=== PATIENT | male | born 1965 | race Caucasian/White ===

== ENCOUNTER 2016-07-11 06:32 | Inpatient (IN) | payer OTHER ==
[2016-07-11] MEDS ORDERED: morphine CARPU-JECT 2 MG/1 ML DISP.SYRIN IVPUSH ONE (06:48)
[2016-07-11] MEDS ORDERED: ONDANSETRON 4 MG/2 ML VIAL IVPUSH STA (06:48)
[2016-07-11] MEDS ORDERED: morphine CARPU-JECT 4 MG/1 ML DISP.SYRIN ONE (06:50)
[2016-07-11] MEDS ORDERED: ONDANSETRON 4 MG/2 ML VIAL ONE (06:50)
--- NOTE | 2016-07-11 07:02 | PDOC ---
History of Present Illness - General History Source: Patient Exam Limitations: No Limitations - History of Present Illness Initial Comments: 07/11/16 07:03 The patient is a 51-year-old male, with a significant past medical history of hypertension and diabetes, who presents to the emergency department complaining of a severe headache for approximately 2 days. The patient reports he was driving this morning when he began developing a right sided headache. He reports taking ibuprofen 1 day ago for his headache with mild relief. He states his right head pain radiates down his right arm. He denies any numbness, paresthesias, weakness, chest pain, shortness of breath, palpitations, or diaphoresis. The patient states he is nauseous, but denies any vomiting, diarrhea, or constipation. He denies any regular history of headaches. The patient denies any fever, chills, cough, headache, or dizziness. He denies any recent travel or sick contacts. The reports he takes 81 mg aspirin daily, but did not get the chance to take it today. Allergies: None reported. Past Surgical History: None reported. Social History: Current everyday smoker (20 cigarettes daily). Denies alcohol or drug use. PCP: Dr. Mike Hubbard ([phone]) <Sweta Omalley - Last Filed: 07/11/16 07:02> - General History Source: Patient <Clifton Ortiz - Last Filed: 07/15/16 19:18> - General Chief Complaint: Headache Stated Complaint: NECK PAIN Time Seen by Provider: 07/11/16 06:46 Past History <Sweta Omalley - Last Filed: 07/11/16 07:02> - Psycho/Social/Smoking Cessation Hx Suicidal Ideation: No Smoking History: Current every day smoker Number of Cigarettes Smoked Daily: 20 Information on smoking cessation initiated: No Hx Alcohol Use: No Drug/Substance Use Hx: No <Clifton Ortiz - Last Filed: 07/15/16 19:18> - Past Medical History Allergies/Adverse Reactions: Allergies Allergy/AdvReac Type Severity Reaction Status Date / Time No Known Allergies Allergy Verified 07/11/16 06:43 Home Medications: Ambulatory Orders Gabapentin [Neurontin] 2 tab PO DAILY 07/11/16 Ibuprofen 1 tab PO DAILY PRN 07/11/16 Linagliptin [Tradjenta] 1 tab PO DAILY 07/11/16 Metformin HCl 500 mg PO BID 07/11/16 Ramipril [Altace] 5 mg PO DAILY 07/11/16 Cyclobenzaprine HCl [Flexeril -] 10 mg PO BID #10 tablet 07/12/16 Oxycodone HCl [Roxicodone -] 5 mg PO Q6H PRN #10 tablet MDD 4 07/12/16 Review of Systems - Review of Systems Able to Perform ROS?: Yes Comments:: 07/11/16 07:03 CONSTITUTIONAL: Absent: fever, chills, diaphoresis, generalized weakness, malaise, loss of appetite HEENT: Absent: rhinorrhea, nasal congestion, throat pain, throat swelling, difficulty swallowing, mouth swelling, ear pain, eye pain, visual Changes CARDIOVASCULAR: Absent: chest pain, syncope, palpitations, irregular heart rate, lightheadedness , peripheral edema RESPIRATORY: Absent: cough, shortness of breath, dyspnea with exertion, orthopnea, wheezing, stridor, hemoptysis GASTROINTESTINAL: Present: +nausea Absent: abdominal pain, abdominal distension, vomiting, diarrhea, constipation, melena, hematochezia GENITOURINARY: Absent: dysuria, frequency, urgency, hesitancy, hematuria, flank pain, genital pain MUSCULOSKELETAL: Present: right head pain radiating down right arm Absent: myalgia, arthralgia, joint swelling SKIN: Absent: rash, itching, pallor HEMATOLOGIC/IMMUNOLOGIC: Absent: easy bleeding, easy bruising, lymphadenopathy, frequent infections ENDOCRINE: Absent: unexplained weight gain, unexplained weight loss, heat intolerance, cold intolerance NEUROLOGIC: Present: +headache Absent: focal weakness or paresthesias, dizziness, unsteady gait, seizure, mental status changes, bladder or bowel incontinence PSYCHIATRIC: Absent: anxiety, depression, suicidal or homicidal ideation, hallucinations. 07/11/16 07:03 <Sweta Omalley - Last Filed: 07/11/16 07:02> *Physical Exam - Vital Signs Last Vital Signs Temp Pulse Resp BP Pulse Ox 98.3 F 91 H 14 193/117 98 07/11/16 06:44 07/11/16 06:44 07/11/16 06:44 07/11/16 06:44 07/11/16 06:44 - Physical Exam Comments: 07/11/16 07:05 GENERAL: +Moderate distress. Well developed, well nourished. Awake and alert. HEENT: Normocephalic, atraumatic. PERRLA, EOMI. No conjunctival pallor. Sclera are non- icteric. Moist mucous membranes. Oropharynx is clear. NECK: Supple. Full ROM. No JVD. Carotid pulses 2+ and symmetric, without bruits. No thyromegaly. No lymphadenopathy. CARDIOVASCULAR: Regular rate and rhythm. No murmurs, rubs, or gallops. Distal pulses are 2+ and symmetric. PULMONARY: No evidence of respiratory distress. Lungs clear to auscultation bilaterally. No wheezing, rales or rhonchi. ABDOMINAL: Soft. Non-tender. Non-distended. No rebound or guarding. No organomegaly. Normoactive bowel sounds. MUSCULOSKELETAL: Normal range of motion at all joints. No bony deformities or tenderness. No CVA tenderness. EXTREMITIES: No cyanosis. No clubbing. No edema. No calf tenderness. SKIN: Warm and dry. Normal capillary refill. No rashes. No jaundice. NEUROLOGICAL: Alert, awake, appropriate. Cranial nerves 2-12 intact. No deficits to light touch and temperature in face, upper extremities and lower extremities. No motor deficits in the in face, upper extremities and lower extremities. Normoreflexic in the upper and lower extremities. Normal speech. Toes are down- going bilaterally. Gait is normal without ataxia. PSYCHIATRIC: Cooperative. Good eye contact. Appropriate mood and affect. <Sweta Omalley - Last Filed: 07/11/16 07:02> - Vital Signs Last Vital Signs Temp Pulse Resp BP Pulse Ox 98.3 F 91 H 14 193/117 98 07/11/16 06:44 07/11/16 06:44 07/11/16 06:44 07/11/16 06:44 07/11/16 06:44 <Clifton Ortiz - Last Filed: 07/15/16 19:18> Heart Score/ECG Review - ECG Impressions Comment:: 07/11/16 07:06 Vent. rate: 82 bpm IMPRESSION: Normal sinus rhythm. Septal infarct. <Sweta Omalley - Last Filed: 07/11/16 07:02> ED Treatment Course - LABORATORY CBC & Chemistry Diagram: 07/12/16 06:30 07/12/16 06:30 - RADIOLOGY Radiology Studies Ordered: Category Date Time Status HEAD CT WITHOUT CONTRAST [CT] Stat CT Scan 07/11/16 06:47 Taken CHEST X-RAY PORTABLE* [RAD] Stat Radiology 07/11/16 06:49 Ordered <Clifton Ortiz - Last Filed: 07/15/16 19:18> Medical Decision Making - Medical Decision Making 07/15/16 19:17 Dr. Ortiz: The scribe's documentation has been prepared under my direction and personally reviewed by me in its entirery. I confirm that the note above accurately reflects all work, treatment, procedures, and medical decision making performed by me. <Clifton Ortiz - Last Filed: 07/15/16 19:18> *DC/Admit/Observation/Transfer - Attestations Scribe Attestion: 07/11/16 07:05 Documentation prepared by Sweta Omalley, acting as biomedical engineering technologist for Clifton Ortiz DO. <Sweta Omalley - Last Filed: 07/11/16 07:02> - Discharge Dispostion Admit: No <Clifton Ortiz - Last Filed: 07/15/16 19:18> Diagnosis at time of Disposition: Neck pain, Hypertensive urgency - Discharge Dispostion Disposition: HOME Condition at time of disposition: Stable - Prescriptions
[2016-07-11] MEDS ORDERED: METOCLOPRAMIDE HCL INJECTION 10 MG/2 ML VIAL IVPUSH ONE (07:24)
[2016-07-11 07:27] LABS: BASOPHIL 1.6 % (0-2.0); EOSINOPHIL 3.5 % (0-4.5); MCH 30.4 pg (25.7-33.7); MCHC 34.4 g/dl (32.0-35.9); MEAN CELL VOLUME 88.3 fl (80-96); NEUTROPHILS 64.4 % (42.8-82.8); PLATELET COUNT 214 K/MM3 (134-434); RDW 13.2 % (11.9-15.9); WHITE BLOOD COUNT 10.2 K/mm3 (4.0-10.0)
--- NOTE | 2016-07-11 07:30 | PDOC ---
*Physical Exam - Vital Signs Last Vital Signs Temp Pulse Resp BP Pulse Ox 98.3 F 91 H 14 193/117 98 07/11/16 06:44 07/11/16 06:44 07/11/16 06:44 07/11/16 06:44 07/11/16 06:44 ED Treatment Course - LABORATORY CBC & Chemistry Diagram: 07/11/16 06:50 07/11/16 06:50 - Medications Given in the ED: ED Medications Discontinued Medications Generic Name Dose Route Start Last Admin Trade Name Syed PRN Reason Stop Dose Admin Morphine Sulfate 8 mg 07/11/16 06:48 07/11/16 07:06 Morphine Injection - IVPUSH 07/11/16 06:49 8 mg ONCE ONE Administration Ondansetron HCl 4 mg 07/11/16 06:48 07/11/16 07:06 Zofran Injection IVPUSH 07/11/16 06:49 4 mg ONCE STA Administration Medical Decision Making - Medical Decision Making 07/11/16 07:24 Pt was signed out to me from Dr. Pimentel approx 7am. 51y M hx of HTN, DM, presents with headache/neck pain - The patient endorses having a mild R sided headache/neck pain resolved with a couple of motrin. This morning, the pt states he had pain in his R shoulder/neck and began again [place]. Pt endorses the pain as a sharp pain in his R head/neck/shoulder/face. There is no assoicated fever/chlls, vision changes, dizziness, facial/extremity numbness , tingling, weakness (nothing new as he does endorse a chronic L arm tingling associated with spinal stenosis). non focal physical exam, the pain worsens when he turns to the right, but there is no reproducible tenderness on palpation. pt does endorse that he has an old sick dog and he was up all night carrying the dog to the bathroom. Pt was given morphine upon arrival and was noted to be hypertensive, states he did not yet take his BP meds this morning yet. Pt was immediately brought to CT. On my wet read of the CT, there is no signs of hemorrhage or anythign acute. Will wait for formal read from Radiology. differential for the pts symptoms include possible migraine, neck spasms/msk pain. considered also dissection of carotid/vertebral arteries - but without any focal neurologic complaints, will treat the pt for msk pain to see if there is improvement. 07/11/16 07:35 CT negative for radiology. 07/11/16 08:14 after further discussion, the pt endorses feeling very dizzy when he he first had his neck pain yesterday, but had resolved. Today there is no associated dizziness or other neurologic complaints. After asking pt to pinpoint his pain, he localizesit primarily to his R neck over his shoulder or head. will obtain CTA of neck/brain to r/o vertebral artery dissection. 07/11/16 09:29 awaiting CTA results pt appears much more comfortable currently. Sitting in bed resting. Still endorses mild discomfort in the neck. 07/11/16 10:46 The pts CTA shows a normal R vertebral artery, however the L side is abnormal - the pt states he feels alot better, still has mild pain, but significantly improved. Deenies any dizziness, vision changes. pts neuro exam - normal finger to nose, rapid alternating movements. Rhomberg negative, strength intact throughout, sensation intact throughout. Pts gait is broad based and pt stagger and sway when he was ambulating. - pt attributes this to his Will keep the pt for admission for further management and neuro consultation. will notify dr. Hubbard 07/11/16 10:54 case was d/w dr. Browning requests MRI neck 07/11/16 12:09 case dw/ dr. grande, consulted on behalf hospitalist service. will see the pt *DC/Admit/Observation/Transfer Diagnosis at time of Disposition: Neck pain, Hypertensive urgency - Discharge Dispostion Admit: Yes - Referrals Referrals: Mike Hubbard MD [Primary Care Provider] - - Patient Instructions - Post Discharge Activity
[2016-07-11 07:39] LABS: INR 0.96 (0.82-1.09); PROTHROMBIN TIME (PATIENT) 10.5 SEC (9.98-11.88)
[2016-07-11] MEDS ORDERED: diazePAM 5 MG TABLET PO ONE (07:48)
[2016-07-11] MEDS ORDERED: diazePAM 5 MG TABLET ONE (07:54)
[2016-07-11] MEDS ORDERED: METOCLOPRAMIDE HCL INJECTION 10 MG/2 ML VIAL ONE (07:54)
[2016-07-11 07:55] LABS: ANION GAP 8 (8-16); CALCIUM 8.5 mg/dL (8.5-10.1); CO2 24 mmol/L (21-32); GLUCOSE,RANDOM 281 mg/dL (74-106)
[2016-07-11 08:03] LABS: ALK PHOS 130 U/L (45-117); BILIRUBIN,TOTAL 0.4 mg/dL (0.2-1.0); CREATININE 1.1 mg/dL (0.7-1.3); SGOT/AST 20 U/L (15-37); SGPT/ALT 45 U/L (12-78); TOT PROT 6.9 g/dl (6.4-8.2); TROPONIN I < 0.02 ng/ml (0.00-0.05)
[2016-07-11 08:10] LABS: ACETONE SERUM NEGATIVE (NEGATIVE)
--- NOTE | 2016-07-11 10:56 | EKG ---
Test Reason : Blood Pressure : / mmHG Vent. Rate : 082 BPM Atrial Rate : 082 BPM P-R Int : 196 ms QRS Dur : 084 ms QT Int : 354 ms P-R-T Axes : 043 002 037 degrees QTc Int : 413 ms NORMAL SINUS RHYTHM SEPTAL INFARCT (CITED ON OR BEFORE 20-MAR-2000) ABNORMAL ECG Confirmed by MARIANN JOSEPH MD ([id number]) on 07/11/2016 10:55:55 AM Referred By: Confirmed By:MARIANN JOSEPH MD
--- NOTE | 2016-07-11 11:25 | HP ---
CHIEF COMPLAINT: Neck pain PCP: Dr. Hubbard HISTORY OF PRESENT ILLNESS: This is a 51 year old male with a history of HTN, NIDDM, diabetic neuropathy, and spinal stenosis who presented to the ED this morning complaining of severe neck pain. He reports that he developed shooting pain on the right side of his neck yesterday while driving. At that time, he also had some dizziness. The pain improved with 800mg ibuprofen, but then recurred today and was worse. He denies fevers/chills, weakness or numbness of the extremities (although he states that he does get numbness in his hands from time to time from his spinal stenosis), chest pain, bladder/bowel dysfunction, or any other symptoms. ER course was notable for: (1) BP on arrival 193/117 (2) CTA Head/Neck done to rule out vertebral artery dissection: normal enhancement of the right vertebral artery; faint enhancement of hypoplastic/ narrowed distal left vertebral artery, remainder not visualized. 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 pack/day Alcohol: None Allergies No Known Allergies Allergy (Verified 07/11/16 06:43) HOME MEDICATIONS: Medication Instructions Recorded Ramipril [Altace] 5 mg PO DAILY 07/11/16 REVIEW OF SYSTEMS CONSTITUTIONAL: Absent: fever, chills, diaphoresis, generalized weakness, malaise, loss of appetite, weight change HEENT: Absent: rhinorrhea, nasal congestion, throat pain, throat swelling, difficulty swallowing, mouth swelling, ear pain, eye pain, visual changes CARDIOVASCULAR: Absent: chest pain, syncope, palpitations, irregular heart rate, lightheadedness , peripheral edema RESPIRATORY: Absent: cough, shortness of breath, dyspnea with exertion, orthopnea, wheezing, stridor, hemoptysis GASTROINTESTINAL: Absent: abdominal pain, abdominal distension, nausea, vomiting, diarrhea, constipation, melena, hematochezia GENITOURINARY: Absent: dysuria, frequency, urgency, hesitancy, hematuria, flank pain, genital pain MUSCULOSKELETAL: Neck pain SKIN: Absent: rash, itching, pallor HEMATOLOGIC/IMMUNOLOGIC: Absent: easy bleeding, easy bruising, lymphadenopathy, frequent infections ENDOCRINE: Absent: unexplained weight gain, unexplained weight loss, heat intolerance, cold intolerance NEUROLOGIC: Absent: headache, focal weakness or paresthesias, dizziness, unsteady gait, seizure, mental status changes, bladder or bowel incontinence PSYCHIATRIC: Absent: anxiety, depression, suicidal or homicidal ideation, hallucinations. PHYSICAL EXAMINATION Vital Signs - 24 hr 07/11/16 07/11/16 06:44 08:03 Temperature 98.3 F Pulse Rate 91 H Pulse Rate [ 84 Left Radial] Respiratory 14 20 Rate Blood Pressure 193/117 Blood Pressure 162/108 [Right Arm] O2 Sat by Pulse 98 98 Oximetry (%) GENERAL: Awake, alert, and fully oriented, in no acute distress. HEAD: Normal with no signs of trauma. EYES: Pupils equal, round and reactive to light, extraocular movements intact, sclera anicteric, conjunctiva clear. No lid lag. EARS, NOSE, THROAT: Ears normal, nares patent, oropharynx clear without exudates. Moist mucous membranes. NECK: Normal range of motion, supple without lymphadenopathy, JVD, or masses. No bruits. No midline vertebral tenderness. LUNGS: Breath sounds equal, clear to auscultation bilaterally. No wheezes, and no crackles. No accessory muscle use. HEART: Regular rate and rhythm, normal S1 and S2 without murmur, rub or gallop. ABDOMEN: Soft, nontender, not distended, normoactive bowel sounds, no guarding, no rebound, no masses. No hepatomegaly or splenomegaly. MUSCULOSKELETAL: Normal range of motion at all joints. No bony deformities or tenderness. No CVA tenderness. UPPER EXTREMITIES: 2+ pulses, warm, well-perfused. No cyanosis. No clubbing. Cap refill <2 seconds. No peripheral edema. LOWER EXTREMITIES: 2+ pulses, warm, well-perfused. No calf tenderness. No peripheral edema. NEUROLOGICAL: Cranial nerves II-XII intact. Normal speech. Normal gait. PSYCHIATRIC: Cooperative. Good eye contact. Appropriate mood and affect. SKIN: Warm, dry, normal turgor, no rashes or lesions noted. Laboratory Results - last 24 hr 07/11/16 07/11/16 07/11/16 06:50 06:50 06:50 WBC 10.2 H RBC 5.01 Hgb 15.2 Hct 44.2 MCV 88.3 MCHC 34.4 RDW 13.2 Plt Count 214 MPV 9.0 Neutrophils % 64.4 Lymphocytes % 22.7 Monocytes % 7.8 Eosinophils % 3.5 Basophils % 1.6 INR 0.96 Sodium 137 Potassium 4.3 Chloride 105 Carbon Dioxide 24 Anion Gap 8 BUN 25 H Creatinine 1.1 Creat Clearance w eGFR > 60 Random Glucose 281 H Calcium 8.5 Magnesium 2.0 Total Bilirubin 0.4 AST 20 ALT 45 Alkaline Phosphatase 130 H Creatine Kinase 234 Creatine Kinase Index 1.5 CK-MB (CK-2) 3.557 CK-MB (CK-2) Rel Index Troponin I < 0.02 B-Natriuretic Peptide 5.58 Total Protein 6.9 Albumin 4.0 Acetone, Qual Negative Blood Type Antibody Screen 07/11/16 07/11/16 06:50 06:50 WBC RBC Hgb Hct MCV MCHC RDW Plt Count MPV Neutrophils % Lymphocytes % Monocytes % Eosinophils % Basophils % INR Sodium Potassium Chloride Carbon Dioxide Anion Gap BUN Creatinine Creat Clearance w eGFR Random Glucose Calcium Magnesium Total Bilirubin AST ALT Alkaline Phosphatase Creatine Kinase Creatine Kinase Index CK-MB (CK-2) CK-MB (CK-2) Rel Index Cancelled Troponin I B-Natriuretic Peptide Total Protein Albumin Acetone, Qual Blood Type O POSITIVE Antibody Screen Negative ASSESSMENT/PLAN: 51 year old male with hypertensive urgency, neck pain, and abnormal CTA neck. Problem List - Problem (1) Hypertensive urgency Assessment/Plan: -BP improved with administration of home Ramipril 5mg and is now 146/96 -Continue home regimen; can up-titrate if needed Code(s): I10 - ESSENTIAL (PRIMARY) HYPERTENSION (2) Neck pain Assessment/Plan: -Patient reports he is currently pain-free -Neurosurgery was consulted by the ED for abnormal CTA findings -Oxycodone 5mg po q6h prn pain Code(s): M54.2 - CERVICALGIA (3) Diabetes Assessment/Plan: -Patient on Metformin and another oral hypoglycemic that he does not recall the name of -Hold oral hypoglycemics following CTA with contrast -FS TIDAC -ISS -Diabetic diet Code(s): E11.9 - TYPE 2 DIABETES MELLITUS WITHOUT COMPLICATIONS (4) Nicotine dependence Assessment/Plan: -Smoking cessation counseling -Declines nicotine patch Code(s): F17.200 - NICOTINE DEPENDENCE, UNSPECIFIED, UNCOMPLICATED (5) DVT prophylaxis Assessment/Plan: -SCDs pending neuro eval -Ambulation Code(s): AOM8281 - Visit type - Emergency Visit Emergency Visit: Yes ED Registration Date: 07/11/16 Care time: The patient presented to the Emergency Department on the above date and was hospitalized for further evaluation of their emergent condition. - New Patient This patient is new to me today: Yes Date on this admission: 07/11/16 - Critical Care Critical Care patient: No
[2016-07-11] MEDS ORDERED: morphine CARPU-JECT 2 MG/1 ML DISP.SYRIN IVPUSH PRN (11:34)
[2016-07-11] MEDS ORDERED: ONDANSETRON 4 MG/2 ML VIAL IVPB PRN (11:34)
[2016-07-11] MEDS ORDERED: morphine CARPU-JECT 4 MG/1 ML DISP.SYRIN IVPUSH PRN (12:28)
[2016-07-11] MEDS ORDERED: DOCUSATE SODIUM 100 MG CAPSULE (FP) PO ONE (15:14)
[2016-07-11] MEDS: DOCUSATE SODIUM 100 MG CAPSULE (FP) PO SCH ×2 (15:21→21:21)
[2016-07-11] MEDS ORDERED: SODIUM CHLORIDE 1,000 ML IV SCH (15:30)
[2016-07-11] MEDS ORDERED: oxyCODONE HCL 5 MG TABLET PO PRN (15:36)
--- NOTE | 2016-07-11 16:31 | PN ---
Progress Note (short form) - Note Progress Note: NEUROSURGERY CONSULT DICTATED Pt seen and examined History obtained Family at bedside 51 year old male with a history of HTN, NIDDM, diabetic neuropathy, and cervical spinal stenosis who presented to the ED this morning complaining of severe R sided neck pain. He reports that he developed shooting pain on the right side of his neck and shoulder. He took Motrin and the pain improve but he felt some dizziness. He denies fevers/chills, weakness or numbness of the extremities. He had L sided neck pain with L arm and hand numbness and tingling in the past. No H/A, N/V. No B/B dysfunction. PE: AF, VSS HEENT- NC/AT; neck- supple; no bruit; Cor-RRR; Lungs- CTA B; Abd- benign, obese ; Ext- no sign of DVT NEURO- A/A/Ox4 CN- intact II-XII; Motor- 5/5 B UE/LE; Sensation- decreased distal LE vibratory sensation; DTR- hyporeflexia CT head- no fx, bleed,stroke CTA head/neck- mild B ICA atherosclerotic disease; hypoplastric L vertebral artery HTN/NIDDM/peripheral neuropathy Recommend C spine MRI to assess anatomy- further recommendations to follow Modification of medical risk factors including DM, HTN, and smoking for future potential cerebrovascular or cardiovascular consequences Plans d/w patient and family
--- NOTE | 2016-07-11 18:04 | CONSULT ---
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 Know spondylytic cervical stenosis > 3 years with L sided neck pain radiating to the Left shoulder and proximal arm. Told about spinal cord compression with mild persistent numbness and tingling in the left hand. Occ unsteady gait and numbness in his feet attributed to "diabetic neuropathy." Yesterday developed Right-sided neck pain with radiation towards the Right shoulder which responded to ibuprofen. Some time later he experienced brief dizziness lasting less than 3 mins. This AM right-sided neck pain recurred with radiation behind the right ear. No associated neurological symptoms this AM. No vertigo, diplopia, facial parethesiae, limb paresthesiae or change in balance or gait. CT of brain (reviewed): Normal CT angio of brain: Hypotrophic left vertebral with normal flow in the right vertebral and basilar. CT angio of neck: Moderate atheromatous changes in both carotid bifurcations without significant stenosis. NICA: No bruits. Decreased neck ROM. NEURO: MS/Speech: Normal CN II-XII: Normal except for few beats of conjugate, left-beating, horizontal nystagmus on left gaze. Motor: No drift or tremor. Normal strength, tone, bulk, reflexes and TAHIRA's. Coord: No FTN dystaxia Sensory: Sl decreased vibration in feet. Romberg - Gait: Slightly wide-based (with c/o knee pains). IMP: Essentially normal neurological exam. Only the nystagmus is of concern for possible posterior fossa ischemia. Cervical spondylosis. Possible cervical stenosis and myelopathy. Suggest: Agree with observation Check B12, ESR, Chol, Homocysteine. Agree with cervical MRI. Control BP. Add ASA 325 mg daily with food. Neurology and neurosurgery follow-up as out-patient. Thank you very much, Jb Browning MD
[2016-07-11 18:41] VITALS: BMI 36.1
[2016-07-11] MEDS: RAMIPRIL 5 MG CAPSULE (FP) PO SCH (18:55)
[2016-07-11] MEDS: INSULIN SLIDING SCALE (NOVOLOG) 1 VIAL SQ SCH (18:58)
[2016-07-11] MEDS ORDERED: METOPROLOL TARTRATE 50 MG TABLET (FP) PO ONE (21:06)
[2016-07-11] MEDS ORDERED: traMADol HCL 50 MG TABLET PO PRN (21:18)
--- NOTE | 2016-07-11 21:19 | HOSP ---
Physical Examination Vital Signs: Vital Signs Temperature 98.3 F 07/11/16 18:26 Pulse Rate 96 H 07/11/16 18:26 Respiratory Rate 20 07/11/16 18:26 Blood Pressure 140/87 07/11/16 15:22 O2 Sat by Pulse Oximetry (%) 98 07/11/16 19:24 Hospitalist Encounter Assessment: I was notified by RN that patient is experiencing severe neck and head pain as well as elevated BP. When I arrived I took patients BP and was 175/110. Patient reports his head and neck pain is chronic and that it worsened today, which prompted this hospital visit. I explained to patient that elevated BP could be due to the pain he is experiencing. I turned off the lights and TV and had patient rest in bed. I placed a call to the Neurologist field operations farm manager, Dr. Ho, and read the recent MRI results PLAN -Lopressor 50mg -Tramadol 50mg BID PRN, as per Neurology -Flexeril 10mg BID PRN, as per Neurology -PT consult placed Visit type - Emergency Visit Emergency Visit: No - New Patient This patient is new to me today: Yes Date on this admission: 07/12/16 - Critical Care Critical Care patient: No
[2016-07-11] MEDS: CYCLOBENZAPRINE HCL 10 MG TABLET (FP) PO SCH (22:55)
[2016-07-12] MEDS: DOCUSATE SODIUM 100 MG CAPSULE (FP) PO SCH ×2 (07:09→14:11)
[2016-07-12] MEDS: INSULIN SLIDING SCALE (NOVOLOG) 1 VIAL SQ SCH ×2 (07:10→12:21)
[2016-07-12 07:47] LABS: BASOPHIL 0.4 % (0-2.0); EOSINOPHIL 4.1 % (0-4.5); MCH 30.4 pg (25.7-33.7); MCHC 34.5 g/dl (32.0-35.9); MEAN CELL VOLUME 88.2 fl (80-96); MEAN PLT VOLUME 8.8 fl (7.5-11.1); NEUTROPHILS 63.5 % (42.8-82.8); PLATELET COUNT 194 K/MM3 (134-434); RDW 13.1 % (11.9-15.9); WHITE BLOOD COUNT 10.8 K/mm3 (4.0-10.0)
--- NOTE | 2016-07-12 08:30 | CONS ---
DATE OF CONSULTATION: REQUESTING PHYSICIAN: Reza Esquivel MD [employer] CONSULTANT: Mike Castellanos MD, Neurosurgery CHIEF COMPLAINT: Neck pain and mild cervical radiculopathy. HISTORY OF PRESENT ILLNESS: The patient is a 51-year-old right-handed male with a history of diabetes, hypertension, and diabetic peripheral neuropathy who complains of left-sided chronic neck pain. Since yesterday, he had severe right-sided neck pain radiating down to the right shoulder and right arm. This is not associated with weakness. He does have some numbness and tingling in the fingertips more predominantly left handed and his feet in the past. He denies Llermitte's sign and has no bowel or bladder dysfunction. Yesterday he was in so much pain that he had to take some anti-inflammatory medication. The pain improved, but he developed some dizziness. He denied any headache or loss of consciousness. He never had a stroke in the past. 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 He also has to lift his 70-pound dog recently. PAST MEDICAL HISTORY: Significant for hypertension, diabetes, diabetic peripheral neuropathy, neck pain from cervical spinal stenosis. MEDICATIONS: Ramipril. ALLERGIES: There are no known drug allergies. FAMILY HISTORY: Noncontributory. SOCIAL HISTORY: He smokes about a pack of cigarettes a day and urged strongly to quit smoking. He drinks alcohol socially. She works as a card brusher. REVIEW OF SYSTEMS: Otherwise, negative for other major cardiovascular, pulmonary, gastrointestinal, genitourinary, endocrinologic, neurological, or psychological problems except for the above. PHYSICAL EXAMINATION: Vital Signs: Temperature 98, blood pressure 140/87 with pulse rate 85, O2 saturation 98% on room air. HEENT: Shows him to be normocephalic, atraumatic. Anicteric. Neck: Supple with no lymphadenopathy, no carotid bruits. Coronary: Demonstrates a regular rhythm. Lungs: Clear. Abdomen: Benign. He is obese. Extremities: Shows no obvious signs of DVT. Distal pulses 2+. Neurologic: He is awake, alert, and oriented x4. Cranial nerve examination is intact 2-12. Motor examination shows 5/5 strength except right biceps and brachioradialis, which is 2+, which could be limited by his current IV site. Sensory examination shows decreased vibratory sensation at distal bilateral extremity. It is intact to light touch. Deep tendon reflexes are hyporeflexive throughout. Gait is not tested for safety reasons. Cervical spine flexion is 40 degrees and extension is 20 degrees. Lateral rotation is 45 degrees in each direction. LABORATORY: Shows white blood cell count 10.2 with hemoglobin 15.2, and platelet count 214,000, INR 0.96. Serum sodium 137, potassium 4.3, BUN 25, creatinine 1.1, glucose 281, alkaline phosphatase 130. CT scan of the head shows no acute fracture, hemorrhage, or edema. There is no bleed. CTA of the neck demonstrated a minimal plaque in the common carotid artery bilaterally with bifurcation bilaterally. There is patent right vertebral artery. There is hypoplastic distal left vertebral artery. IMPRESSION: 1. Probable cervical spondylosis with stenosis with neck pain and cervical radiculopathy. 2. Diabetes. 3. Hypertension. 4. Obesity. RECOMMENDATIONS: The patient presents with chronic neck pain and left upper extremity radiculopathy. His clinical picture is also complicated by his diabetic peripheral neuropathy. The patient has previously undergone cervical spine imaging demonstrating spinal stenosis by report. A new MRI of the cervical spine is recommended to rule out worsening of cervical spinal stenosis and neurological element impingement. If an impingement is mild, a course of more conservative treatment including physical therapy, anti-inflammatory medication, and neurotropic agent could be considered. If there is more severe compression and neurological element, surgical intervention will need to be considered in the future as well. The patient does have confounding medical factors including diabetes and hypertension, which can cause significant increased incidents of cerebrovascular as well as cardiovascular disease. The patient is urged strongly to lose weight. He is also strongly urged to quit smoking because of the potential risks associated with it. A neurology consult is also pending from Dr. Browning. Further recommendations will be made upon availability of the MRI imaging. The above was discussed with the patient and his family at bedside. MIKE CASTELLANOS M.D. CASANDRA/[id number] MTDD
[2016-07-12 08:34] LABS: ALBUMIN 3.5 g/dl (3.4-5.0); ANION GAP 9 (8-16); CALCIUM 8.6 mg/dL (8.5-10.1); CO2 24 mmol/L (21-32); GLUCOSE,RANDOM 192 mg/dL (74-106); MAGNESIUM 2.1 mg/dL (1.8-2.4)
[2016-07-12 08:38] LABS: ALK PHOS 84 U/L (45-117); BILIRUBIN,TOTAL 0.4 mg/dL (0.2-1.0); CREATININE 0.9 mg/dL (0.7-1.3); SGOT/AST 13 U/L (15-37); SGPT/ALT 36 U/L (12-78); TOT PROT 6.6 g/dl (6.4-8.2)
[2016-07-12] MEDS ORDERED: PT OWN MED DRAWER 7, Y5N ONE (09:40)
[2016-07-12] MEDS ORDERED: RAMIPRIL 5 MG CAPSULE (FP) PO SCH (10:00)
[2016-07-12] MEDS: CYCLOBENZAPRINE HCL 10 MG TABLET (FP) PO SCH (10:17)
[2016-07-12] MEDS: RAMIPRIL 5 MG CAPSULE (FP) PO SCH (10:17)
--- NOTE | 2016-07-12 10:24 | PN ---
Progress Note (short form) - Note Progress Note: NEUROSURGERY H/o HTN, NIDDM, diabetic neuropathy, and cervical spinal stenosis with severe R sided neck pain to R shoulder. He took Motrin and the pain improve but he felt some dizziness. He denies fevers/chills, weakness or numbness of the extremities. He had L sided neck pain with L arm and hand numbness and tingling in the past. Pain better initially in ED but recurred overnight. No H/ A, N/V. No B/B dysfunction. PE: AF, VSS HEENT- NC/AT; neck- supple; no bruit; Cor-RRR; Lungs- CTA B; Abd- benign, obese ; Ext- no sign of DVT NEURO- A/A/Ox4 CN- intact II-XII; Motor- 5/5 B UE/LE; Sensation- decreased distal LE vibratory sensation; DTR- hyporeflexia CT head- no fx, bleed,stroke CTA head/neck- mild B ICA atherosclerotic disease; hypoplastric L vertebral artery MRI C spine- multilevel DDD with reversal of lordosis, L C3-4 > C2-3 facet hypertrophy, small central C3-4 disc protrusion with thecal sac impingement and mild-moderate stenosis; central R C4-5 paracentral disc protrusion with thecal sac and mild cord impingement and moderate-marked central stenosis; mild R C5-6 paracentral disc bulge HTN/NIDDM/peripheral neuropathy Multilevel DDD worst at C4-5 > C3-4 with associated R > L C5 and C4 radiculopathy Given DM do not favor steroid penitentiary but would give one dose for symptoms control Trial of NSAIDS (though borderline renal function with DM and HTN) and PT (no neck adjustment or manipulation) and live with residual symptoms Modification of medical risk factors including DM, HTN, and smoking for future potential cerebrovascular or cardiovascular consequences Likely will need decompression at C4-5, possibly C3-4 given stenosis, DDD, and osteophytes with corresponding symptoms Pros and cons of treatment approaches discussed Pt aware and will seek care of C spine condition if worsening pain or neurological function
[2016-07-12] MEDS ORDERED: DEXAMETHASONE SOD PHOSPHATE 4 MG/1 ML VIAL IVPB ONE (11:15)
--- NOTE | 2016-07-12 14:33 | DS ---
Physical Exam: SUBJECTIVE: Patient seen and examined Patient is feeling better , neck is better, was relieved by oxycodone and flexeril. No radiating pain at this time. OBJECTIVE: Vital Signs Temperature 98.2 F 07/12/16 06:00 Pulse Rate 72 07/12/16 06:00 Respiratory Rate 20 07/12/16 06:00 Blood Pressure 125/79 07/12/16 06:00 O2 Sat by Pulse Oximetry (%) 98 07/11/16 19:24 PHYSICAL EXAM GENERAL: The patient is awake, alert, and fully oriented, in no acute distress. Nice gentleman HEAD: Normal with no signs of trauma. EYES: PERRL, extraocular movements intact, sclera anicteric, conjunctiva clear. ENT: Ears normal, oropharynx clear without exudates, moist mucous membranes. NECK: Trachea midline, full range of motion, supple. LUNGS: Breath sounds equal, clear to auscultation bilaterally, no wheezes, no crackles, no accessory muscle use. HEART: Regular rate and rhythm, S1, S2 without murmur, rub or gallop. ABDOMEN: Soft, nontender, nondistended, normoactive bowel sounds, no guarding, no rebound, no hepatosplenomegaly, no masses. EXTREMITIES: 2+ pulses, warm, well-perfused, no edema. NEUROLOGICAL: Cranial nerves II through XII grossly intact. Normal speech, gait not observed. PSYCH: Normal mood, normal affect. SKIN: Warm, dry, normal turgor, no rashes or lesions noted. CN- intact II-XII; Motor- 5/5 B UE/LE; Sensation- decreased distal LE vibratory sensation; DTR- hyporeflexia LABS CBCD WBC 10.8 K/mm3 (4.0-10.0) H 07/12/16 06:30 RBC 4.92 M/mm3 (4.00-5.60) 07/12/16 06:30 Hgb 15.0 GM/dL (11.7-16.9) 07/12/16 06:30 Hct 43.4 % (35.4-49) 07/12/16 06:30 MCV 88.2 fl (80-96) 07/12/16 06:30 MCHC 34.5 g/dl (32.0-35.9) 07/12/16 06:30 RDW 13.1 % (11.9-15.9) 07/12/16 06:30 Plt Count 194 K/MM3 (134-434) 07/12/16 06:30 MPV 8.8 fl (7.5-11.1) 07/12/16 06:30 CMP Sodium 139 mmol/L (136-145) 07/12/16 06:30 Potassium 4.4 mmol/L (3.5-5.1) 07/12/16 06:30 Chloride 106 mmol/L (98-107) 07/12/16 06:30 Carbon Dioxide 24 mmol/L (21-32) 07/12/16 06:30 Anion Gap 9 (8-16) 07/12/16 06:30 BUN 13 mg/dL (7-18) D 07/12/16 06:30 Creatinine 0.9 mg/dL (0.7-1.3) 07/12/16 06:30 Creat Clearance w eGFR > 60 (>60) 07/12/16 06:30 Random Glucose 192 mg/dL (74-106) H D 07/12/16 06:30 Calcium 8.6 mg/dL (8.5-10.1) 07/12/16 06:30 Total Bilirubin 0.4 mg/dL (0.2-1.0) 07/12/16 06:30 AST 13 U/L (15-37) L D 07/12/16 06:30 ALT 36 U/L (12-78) 07/12/16 06:30 Alkaline Phosphatase 84 U/L (45-117) D 07/12/16 06:30 Total Protein 6.6 g/dl (6.4-8.2) 07/12/16 06:30 Albumin 3.5 g/dl (3.4-5.0) 07/12/16 06:30 CARDIAC ENZYMES Creatine Kinase 234 IU/L (39-308) 07/11/16 06:50 Troponin I < 0.02 ng/ml (0.00-0.05) 07/11/16 06:50 Current Medications Generic Name Dose Route Start Last Admin Trade Name Freq PRN Reason Stop Dose Admin Cyclobenzaprine HCl 10 mg 07/11/16 22:00 07/12/16 10:17 Flexeril - PO 10 mg BID JOSE RAMON Administration Docusate Sodium 100 mg 07/11/16 14:00 07/12/16 14:11 Colace - PO Not Given TID JOSE RAMON Sodium Chloride 1,000 mls @ 100 mls/hr 07/11/16 15:30 07/11/16 15:35 Normal Saline - IV 07/13/16 01:29 100 mls/hr ASDIR JOSE RAMON Administration Insulin Aspart 1 vial 07/11/16 16:30 07/12/16 12:21 Novolog Vial Sliding Scale - SQ 2 units TIDAC JOSE RAMON Administration Protocol Ondansetron HCl 4 mg 07/11/16 11:34 Zofran Injection IVPB Q6H PRN NAUSEA Oxycodone HCl 5 mg 07/11/16 15:36 Roxicodone - PO Q6H PRN PAIN Ramipril 5 mg 07/11/16 19:00 07/12/16 10:17 Altace - PO 5 mg DAILY JOSE RAMON Administration Tramadol HCl 50 mg 07/11/16 21:18 Ultram - PO Q12H PRN PAIN Medication Instructions Recorded Gabapentin [Neurontin] 2 tab PO DAILY 07/11/16 Ibuprofen 1 tab PO DAILY PRN 07/11/16 Linagliptin [Tradjenta] 1 tab PO DAILY 07/11/16 Metformin HCl 500 mg PO BID 07/11/16 Ramipril [Altace] 5 mg PO DAILY 07/11/16 CT head- No bleed, stroke CTA head/neck- mild B ICA atherosclerotic disease; hypoplastric L vertebral artery MRI C spine- multilevel DDD with reversal of lordosis, L C3-4 > C2-3 facet hypertrophy, small central C3-4 disc protrusion with thecal sac impingement and mild-moderate stenosis; central R C4-5 paracentral disc protrusion with thecal sac and mild cord impingement and moderate-marked central stenosis; mild R C5-6 paracentral disc bulge HOSPITAL COURSE: Date of Admission:07/11/16 Date of Discharge: 07/12/16 # Hypertensive urgency improved post pain control # Acute Neck pain due multilevel DDD with reversal of lordosis, L C3-4 > C2-3 facet hypertrophy, small central C3-4 disc protrusion with thecal sac impingement and mild-moderate stenosis; central R C4-5 paracentral disc protrusion with thecal sac and mild cord impingement and moderate-marked central stenosis; mild R C5-6 paracentral disc bulge On MRI. -Oxycodone 5mg po q6h prn pain as needed supply for 2 days follow with and follow with Dr.Tom Sosa within a week. Flexeril for muscle relaxant as needed basis Patient was seen by neurosurgery and Neurologist will follow up with them as an outpatient. # T2DM on home meds continue Diabetic diet # Nicotine dependence discussed cigarette cessation discharge time 45minutes Minutes to complete discharge: 45 Discharge Summary Reason For Visit: NECK PAIN,HYPERTENSIVE URGENCY Current Active Problems DVT prophylaxis (Acute) Diabetes (Acute) Hypertensive urgency (Acute) Neck pain (Acute) Nicotine dependence (Acute) - Instructions Referrals: Mike Hubbard MD [Primary Care Provider] - - Home Medications Comprehensive Discharge Medication List: Ambulatory Orders Gabapentin [Neurontin] 2 tab PO DAILY 07/11/16 Ibuprofen 1 tab PO DAILY PRN 07/11/16 Linagliptin [Tradjenta] 1 tab PO DAILY 07/11/16 Metformin HCl 500 mg PO BID 07/11/16 Ramipril [Altace] 5 mg PO DAILY 07/11/16 This patient is new to me today: Yes Date on this admission: 07/12/16 Emergency Visit: Yes ED Registration Date: 07/11/16 Care time: The patient presented to the Emergency Department on the above date and was hospitalized for further evaluation of their emergent condition. Critical Care patient: No - Discharge Referral Referred to [facility] No
[2016-07-12 15:38] VITALS: BP 121/70; PULSE 74; TEMP 97.9
== END 2016-07-12 15:50 | disposition home or self-care (01) | DRG 552 ==
LOC: JER 06:32 → JERBED 11:39 → J5S 18:10
PROVIDERS: ADMIT Internal Medicine; ATTEND Internal Medicine
DX: M50.121 Cervical disc disorder at C4-C5 level with radiculopathy (principal); I16.0 Hypertensive urgency; F17.210 Nicotine dependence, cigarettes, uncomplicated; E11.40 Type 2 diabetes mellitus with diabetic neuropathy, unspecified; E66.9 Obesity, unspecified; M47.22 Other spondylosis with radiculopathy, cervical region; Z79.4 Long term (current) use of insulin; M48.02 Spinal stenosis, cervical region; Z68.36 Body mass index [BMI] 36.0-36.9, adult
CPT/HCPCS: 36415; 70450-TC; 70496-TC; 70498-TC; 71010-TC; 72141-TC; 80053; 82009; 82550; 82553; 83735; 83880; 84484; 85025; 85610; 86850; 86900; 86901; 93005; 93010; 99285-25